=== PATIENT | male | born 1970 | race Caucasian/White ===

== ENCOUNTER 2018-02-27 04:37 | Inpatient (IN) | payer MEDICAID ==
[~2018-02-27] VITALS: Ht 172.7 cm; Wt 81.6 kg
--- NOTE | ~2018-02-27 | DS ---
PATIENT:NANCY WHEAT :66 MEDICAL RECORD: [id number] DISCHARGE SUMMARY ADMISSION DATE: 02/27/18 DISCHARGE DATE: 02/27/18 This is a discharge dated 02/27/2018 from the inpatient hospital. DISCHARGE DIAGNOSES: 1. Acute congestive heart failure. 2. Diabetes type 2. 3. Hypertension. 4. Chronic kidney disease. 5. Coronary artery disease. 6. Tobacco abuse. HOSPITAL COURSE: Full H&P is located elsewhere on the chart on this 47-year-old male who was admitted through the Emergency Room for management of acute congestive heart failure. He was placed on telemetry with labs ordered. He had a venous Doppler that was negative for DVT in the lower extremities and a chest x-ray showing central vascular congestion. He was given diuretics and chose to leave the hospital on 02/27/2018 against medical advice. DISCHARGE MEDICATIONS: As per discharge medication reconciliation. DISCHARGE DISPOSITION: The patient left the hospital against medical advice. It was recommended that he follow up with his primary care provider in [place], [place]. TRANSINT:[id number] Voice Confirmation ID: [id number] DOCUMENT ID: [id number] Dictated By: PRUDENCE ALVAREZ I have interviewed/examined the above patient and agree with these documented findings. ANA POLLARD MD at 1039 at 0940 CC: [id number] DICTATION DATE: 03/14/181918 LEAD POURER: 03/15/18 0328 DIS IN 02/27/18 [facility] [address] [place] [address]
--- NOTE | ~2018-02-27 | CN ---
PATIENT NAME:NANCY WHEAT MEDICAL RECORD: [id number] : 66 LOCATION:[facility] D.2115 ADMIT DATE: 02/27/18 ACCOUNT: [id number] CONSULTING PHYSICIAN: SHAZIA ELISE MD REFERRING PHYSICIAN: ANA POLLARD MD DATE OF CONSULTATION: HISTORY OF PRESENT ILLNESS: A 39-year-old gentleman, somewhat of a meandering history, transferred from [place] for a higher level of care. Apparently, he was diagnosed with a cardiomyopathy. 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 PAST MEDICAL HISTORY: Includes history of hypertension. SOCIAL HISTORY: History of illicit drug abuse. He does smoke. REVIEW OF SYSTEMS: The patient reports easy bruising but reports no swollen glands. The patient reports no fever, no night sweats, no significant weight gain, no significant weight loss. No significant exercise tolerance. The patient reports no dry eyes, no irritation, no vision change. Patient reports no difficulty hearing and no ear pain. Patient reports no frequent nose bleeds or nose and sinus problems. Patient reports on arm pain on exertion. No shortness of breath while lying down. No history of heart murmur. Patient reports no cough, no wheezing or coughing up blood. Patient reports no abdominal pain, no vomiting. Normal appetite. No diarrhea and not vomiting blood. No nausea and no constipation. Patient reports no incontinence. No difficulty urinating. No hematuria. No increased frequency. Patient reports no muscle aches. No weakness, no arthralgias, no back pain. No swelling of the extremities. Patient reports no abnormal mole, no jaundice, no rashes. Reports no loss of consciousness. No weakness and no numbness. No seizures, dizziness, or headaches. The patient reports no depression, no sleep disturbance, feeling safe in a relationship and no alcohol abuse. Patient reports on fatigue. Reports no runny nose or sinus pressure. No itching, no hives, and no frequent sneezing. PHYSICAL EXAMINATION: GENERAL: Middle-aged gentleman, somewhat unkempt, complaining of excruciating pain. VITAL SIGNS: Blood pressure 207/115, pulse 94 and regular. HEENT: Normocephalic, atraumatic. NECK: No bruits are noted. HEART: Regular. S4 gallop is noted. LUNGS: Actually he has fairly good air excursion. ABDOMEN: Soft, nontender. EXTREMITIES: Pulses 1+ with 2+ edema. IMPRESSION: At this point in time, we will start carvedilol, ARB, diuretics for blood pressure control. Check echocardiography study. Question given his somewhat smoldering history concerning for endocarditis, new-onset myopathy. Further recommendations based on the above. TRANSINT:[id number] Voice Confirmation ID: [id number] DOCUMENT ID: [id number] CONSULT REPORT [id number] NANCY WHEAT,SHAZIA Lovell MD at 1132 CC: [id number] DICTATION DATE: 02/27/18925 ELECTRONIC SPECIALIST: 02/27/18 1346 DIS IN 02/27/18 [facility] [id number] [place] [address]
[2018-02-27 06:49] VITALS: BP 171/115
[2018-02-27 08:24] VITALS: BP 171/115; BMI 27.4
[2018-02-27 08:54] VITALS: BP 207/115
[2018-02-27 09:35] LABS: BASOPHILS 0.3 % (0-2); EOSINOPHILS 1.5 % (0-7); HEMATOCRIT 25.1 % (42.0-54.0); IMMATURE GRANULOCYTES 0.2 % (0-5); LYMPHOCYTES 14.4 % (15-50); MCH 25.4 pg (26.0-34.0); MCHC 31.9 g/dL (31.0-37.0); MCV 79.7 fL (80.0-100.0); MEAN PLATELET VOLUME 8.7 fL (7.4-10.4); MONOCYTES 14.8 % (2-11); NEUTROPHILS 68.8 % (40-80); PLATELET COUNT 411 10x3/uL (130-400); RBC 3.15 10x6/uL (4.20-6.10); RDW 15.8 % (11.5-14.5); WBC 12.3 10x3/uL (4.8-10.8)
[2018-02-27 09:54] LABS: ANION GAP 19.5 mmol/L (8-16); CALCIUM 8.9 mg/dL (8.5-10.1); CARBON DIOXIDE 22.2 mmol/L (21.0-32.0); CREATININE - SERUM 2.4 mg/dL (0.6-1.3); POTASSIUM - SERUM 3.7 mmol/L (3.5-5.1)
[2018-02-27 12:33] VITALS: BP 151/82
[2018-02-27 13:30] VITALS: Ht 172.7 cm; Wt 81.6 kg
[2018-02-27 16:34] VITALS: BP 161/100
== END 2018-02-27 19:55 | disposition left against medical advice (07) | DRG 293 ==
LOC: D.M2 04:37
PROVIDERS: Family Medicine
DX: I13.0 Hypertensive heart and chronic kidney disease with heart failure and stage 1 through stage 4 chronic kidney disease, or unspecified chronic kidney disease (principal); I50.9 Heart failure, unspecified; N18.9 Chronic kidney disease, unspecified; E11.22 Type 2 diabetes mellitus with diabetic chronic kidney disease; E11.65 Type 2 diabetes mellitus with hyperglycemia; I25.10 Atherosclerotic heart disease of native coronary artery without angina pectoris; G89.29 Other chronic pain; Z95.1 Presence of aortocoronary bypass graft; Z72.0 Tobacco use